=== PATIENT | female | born 1985 | race Caucasian/White ===

== ENCOUNTER 2018-10-28 14:52 | Inpatient (IN) | payer BC ==
--- NOTE | 2018-10-28 15:09 | RAD ---
Exam: Right ankle 3 views: HISTORY: Right ankle pain following injury FINDINGS: Displaced fracture of the base of the medial malleolus. Comminuted essentially nondisplaced fracture of the distal fibular diaphysis. IMPRESSION: Comminuted distal fibular diaphyseal fracture with displaced fracture of the medial malleolus with ov erlying soft tissue swelling.
[2018-10-28 16:38] LABS: #Basophils 0.1 thou/uL (0.0-0.2); #Eosinphils 0.1 thou/uL (0.0-0.7); #Lymphocytes 1.9 thou/uL (1.20-3.40); #Monocytes 0.5 thou/uL (0.11-0.59); #Neutrophils 8.4 thou/uL (1.40-6.50); %Basophils 0.8 % (0.0-1.0); %Eosinophils 1.3 % (0.0-10.0); %Monocytes 4.9 % (0.0-10.0); %Neutrophils 76.1 % (42.0-75.0); Hemoglobin 14.3 g/dL (12.0-16.0); Mean Corpuscular HGB CONC 35.3 g/dL (32.0-36.0); Mean Corpuscular Hemoglobin 32.5 pg (27.0-31.0); Mean Platelet Volume 8.4 fL (7.4-10.4); Platelet Count 310 thou/uL (130-400); RBC Distribution Width 11.1 % (11.5-14.5)
--- NOTE | 2018-10-28 16:46 | RAD ---
PORTABLE CHEST ONE VIEW: Date: 10-28-18 Time: 4:16 p.m. History: Chest pain. FINDINGS: The heart size is normal. The lungs are expanded without focal areas of consolidation, pneumothoraces or pleural effusions. IMPRESSION: No radiographic evidence of acute cardiopulmonary process. POS: [facility]
[2018-10-28 17:02] LABS: ALT (SGPT) 11 U/L (8-55); AST (SGOT) 14 U/L (5-34); Albumin 4.4 g/dL (3.5-5.0); Alkaline Phosphatase 62 U/L (40-150); Anion Gap 13 mmol/L (10-20); BUN (Urea Nitrogen) 10 mg/dL (7.0-18.7); Bilirubin, Total 0.3 mg/dL (0.2-1.2); Calc. Creatinine Clearance 0 mL/min (70-130); Calcium 9.5 mg/dL (7.8-10.44); Carbon Dioxide 23 mmol/L (22-29); Chloride 107 mmol/L (98-107); Estimated GFR-MDRD 72; Globulin 3.2 g/dL (2.4-3.5); Glucose 115 mg/dL (70-105); Potassium 3.6 mmol/L (3.5-5.1); Protein, Total 7.6 g/dL (6.0-8.3); Sodium 139 mmol/L (136-145)
[2018-10-28] MEDS ORDERED: Morphine 4 MG/ML VIAL ONE (17:18)
[2018-10-28] MEDS ORDERED: Ondansetron PF 4 MG/2 ML Vial ONE (17:18)
[2018-10-28] MEDS ORDERED: hydrALAZINE 20 MG/ML VIAL SLOW IVP PRN (17:38)
[2018-10-28] MEDS ORDERED: Ondansetron ODT 4 MG TAB PO PRN (17:38)
[2018-10-28] MEDS ORDERED: Morphine 2 MG/ML SYRINGE SLOW IVP PRN (17:38)
[2018-10-28] MEDS ORDERED: Ondansetron PF 4 MG/2 ML Vial IVP PRN (17:38)
[2018-10-28] MEDS ORDERED: Dextrose 50% Abboject 50 ML SYRINGE SLOW IVP PRN (17:38)
[2018-10-28] MEDS ORDERED: Dextrose 5% in Water 1,000 ML IV PRN (17:38)
[2018-10-28] MEDS ORDERED: traMADol HCl 50 MG TAB PO PRN ×2 (17:47→19:40)
[2018-10-28 18:18] LABS: Magnesium 1.9 mg/dL (1.6-2.6)
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
[2018-10-28] MEDS ORDERED: Sodium Chloride 0.9% 1,000 ML IV SCH (19:00)
[2018-10-28] MEDS: Sodium Chloride 0.9% 1,000 ML IV SCH (21:30)
[2018-10-28] MEDS: Ibuprofen 600 MG TAB PO SCH (21:30)
[2018-10-28] MEDS: Senokot S 8.6-50 MG TAB PO SCH (21:31)
[2018-10-28] MEDS: Famotidine 20 MG TAB PO SCH (21:31)
[2018-10-28] MEDS: Acetaminophen 500 MG TAB PO SCH (21:31)
[2018-10-29] MEDS ORDERED: Potassium Phosphate 30 MMOL in Sodium Chloride 0.9% 500 ML IVPB SCH (00:15)
[2018-10-29] MEDS: Acetaminophen 500 MG TAB PO SCH ×3 (00:59→13:43)
[2018-10-29] MEDS: Sodium Chloride 0.9% 1,000 ML IV SCH ×2 (04:00→08:05)
[2018-10-29 05:03] VITALS: BMI 33.6
[2018-10-29 05:26] LABS: #Basophils 0.1 thou/uL (0.0-0.2); #Eosinphils 0.3 thou/uL (0.0-0.7); #Lymphocytes 2.9 thou/uL (1.20-3.40); #Monocytes 0.7 thou/uL (0.11-0.59); #Neutrophils 3.7 thou/uL (1.40-6.50); %Basophils 1.2 % (0.0-1.0); %Eosinophils 3.4 % (0.0-10.0); %Monocytes 9.6 % (0.0-10.0); %Neutrophils 47.9 % (42.0-75.0); Hemoglobin 11.6 g/dL (12.0-16.0); Mean Corpuscular HGB CONC 34.6 g/dL (32.0-36.0); Mean Corpuscular Hemoglobin 32.6 pg (27.0-31.0); Mean Corpuscular Volume 94.4 fL (78.0-98.0); Mean Platelet Volume 8.4 fL (7.4-10.4); Platelet Count 255 thou/uL (130-400); RBC Distribution Width 11.3 % (11.5-14.5); Red Blood Cell (RBC) Count 3.55 mill/uL (4.20-5.40); White Blood Cell (WBC) Count 7.7 thou/uL (4.8-10.8)
[2018-10-29] MEDS: Ibuprofen 600 MG TAB PO SCH ×2 (05:30→13:48)
[2018-10-29 05:48] LABS: Prothrombin Time 13.4 SEC (12.0-14.7)
[2018-10-29 05:56] LABS: Anion Gap 10 mmol/L (10-20); BUN (Urea Nitrogen) 13 mg/dL (7.0-18.7); Calc. Creatinine Clearance 139 mL/min (70-130); Calcium 8.6 mg/dL (7.8-10.44); Carbon Dioxide 22 mmol/L (22-29); Chloride 111 mmol/L (98-107); Estimated GFR-MDRD 82; Glucose 87 mg/dL (70-105); Magnesium 1.9 mg/dL (1.6-2.6); Phosphorus 5.8 mg/dL (2.3-4.7); Potassium 3.9 mmol/L (3.5-5.1); Sodium 139 mmol/L (136-145)
[2018-10-29] MEDS ORDERED: Neomycin-Polymyxin 1 ML AMP ONE (07:29)
[2018-10-29] MEDS ORDERED: Dexamethasone 20 MG/5 ML VIAL ONE (07:33)
[2018-10-29] MEDS ORDERED: Ondansetron PF 4 MG/2 ML Vial ONE (07:33)
[2018-10-29] MEDS ORDERED: PROPOFOL 200 MG/20 ML VIAL ONE (07:33)
[2018-10-29] MEDS ORDERED: Lidocaine 1% PF 5 ML VIAL ONE (07:33)
[2018-10-29] MEDS ORDERED: ePHEDrine 50 MG/ML VIAL ONE (07:33)
[2018-10-29] MEDS ORDERED: Ketorolac Tromethamine 30 MG/ML VIAL ONE (07:33)
[2018-10-29] MEDS ORDERED: Bupivacaine PF 0.5% 30 ML VIAL ONE (07:35)
[2018-10-29] MEDS ORDERED: Bupivacaine/Epinephrine 0.25% 30 ML VIAL ONE (07:35)
[2018-10-29] MEDS ORDERED: Lidocaine 2% Jelly 5 ML TUBE ONE (07:44)
[2018-10-29] MEDS ORDERED: Fentanyl 100 MCG/2 ML VIAL ONE ×3 (07:44→10:07)
[2018-10-29] MEDS: Famotidine 20 MG TAB PO SCH (08:05)
[2018-10-29] MEDS: Senokot S 8.6-50 MG TAB PO SCH (08:05)
[2018-10-29] MEDS ORDERED: Polyethylene Glycol 3350 17 GM Packet PO SCH (09:00)
[2018-10-29] MEDS ORDERED: Bupivacaine HCl 0.5%/Epinephrine 1:200,000/PF 30 ml Vial ONE (09:16)
[2018-10-29] MEDS ORDERED: Promethazine HCl 25 MG/ML VIAL SLOW IVP PRN (09:48)
[2018-10-29] MEDS ORDERED: Promethazine HCl 25 MG/ML VIAL IM PRN (09:48)
[2018-10-29] MEDS ORDERED: Meperidine HCl/PF 25 MG/ML VIAL SLOW IVP PRN (09:48)
[2018-10-29] MEDS ORDERED: Ondansetron HCl/PF 4 MG/2 ML Vial IVP PRN (09:48)
[2018-10-29] MEDS ORDERED: Meperidine HCl/PF 25 MG/ML VIAL ONE (09:49)
[2018-10-29] MEDS ORDERED: Promethazine HCl 25 MG/ML VIAL ONE (09:56)
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
--- NOTE | 2018-10-29 10:45 | OP ---
DATE OF PROCEDURE: 10/29/2018 PREOPERATIVE DIAGNOSIS: Bimalleolar fracture of the right ankle. POSTOPERATIVE DIAGNOSIS: Bimalleolar fracture of the right ankle. PROCEDURE PERFORMED: Open reduction and internal fixation of the bimalleolar fracture of the right ankle. ANESTHESIA: General. DESCRIPTION OF PROCEDURE: The patient was given preoperative IV antibiotics, taken to the operating room, placed in supine position. Satisfactory general anesthesia was performed. The right lower extremity was sterilely prepped and draped in usual fashion. After exsanguination of tourniquet, the right thigh was raised to 250 mmHg. A longitudinal incision was made in the lateral aspect of the right leg. Blunt dissection was made. The superficial branch of peroneal nerve was identified and carefully retracted out of the way. The lateral cortex of the distal fibular shaft was periosteally elevated and the fracture was manipulated, reduced, held reduced with a bone clamp and then internally fixed with a [employer] third tubular locking plate. A 3.5 cortical screw was placed proximal and distal to the fractures and the remaining 6 holes had 3.5 locking screws. This was performed under fluoroscopic visualization, which showed good alignment of the fibular shaft and proper placement of the plate and screws. Additional incision was made medially over the medial malleolus, and under fluoroscopic visualization, two guide pins were placed up the medial malleolus and then was internally fixed with two 4.0 cannulated screws. This provided good reduction and good stability of the fractures. The ankle was stressed out laterally and there was no opening in the interosseous region, and therefore, an interosseous screw was not needed. Both wounds were then copiously irrigated with antibiotic solution. They were closed using 0 Vicryl for the fat and subcutaneous tissues and skin was closed with 3-0 Rapide. The wounds were then infiltrated with total of 30 mL of 0.5% Marcaine with epinephrine. Sterile dressing was applied. Tourniquet was released. The patient was placed in a boot. She was awakened, extubated, and transferred to recovery room in stable condition. ESTIMATED BLOOD LOSS: 100 mL. COMPLICATIONS: None. TOURNIQUET TIME: 61 minutes. DISCHARGE MEDICATIONS: Tramadol 50 mg one to two every 6 hours as needed for pain #50 with one refill. The patient was instructed multiple times she needs to be nonweightbearing until the fractures have healed, which will take at least 6, possibly 8 weeks. Job ID: [id number]
[2018-10-29 11:24] VITALS: BP 116/78; TEMP 97.4
--- NOTE | 2018-10-29 13:34 | RAD ---
Exam: Right ankle 3 views: HISTORY: Metal plate and screws stabilizing the distal fibular diaphyseal fracture and 2 internal fixation scr ews stabilizing the medial malleolar fracture with considerable improvement in position and alignment. Impression: Status post ORIF right ankle
[2018-10-29] MEDS ORDERED: Ketorolac Tromethamine 30 MG/ML VIAL IVP SCH (15:00)
[2018-10-30] MEDS ORDERED: NORGESTIMATE ETHINYL ESTRADIOL PO SCH (09:00)
== END 2018-10-29 15:50 | disposition home or self-care (01) | DRG 494 ==
LOC: ERS 14:52 → SURG A 17:18
PROVIDERS: ADMIT Specialist; ATTEND Specialist
PROC: 0QSG04Z Reposition Right Tibia with Internal Fixation Device, Open Approach (ICD-10-PCS; principal; 2018-10-29)
PROC: 0QSJ04Z Reposition Right Fibula with Internal Fixation Device, Open Approach (ICD-10-PCS; 2018-10-29)
DX: S82.841A Displaced bimalleolar fracture of right lower leg, initial encounter for closed fracture (principal); W50.0XXA Accidental hit or strike by another person, initial encounter; Y93.51 Activity, roller skating (inline) and skateboarding
CPT/HCPCS: 29515; 36415; 71045; 76000; 80048; 80053; 83735; 84100; 85025; 85610; 93005; 96374; 96375; C1713; C1769; J0670; J0690; J1100; J1885; J2001; J2175; J2270; J2405; J2550; J2704; J3010; J3490; J7050; S0020

== ENCOUNTER 2018-11-08 14:51 | Day surgery (SDC) | payer BC ==
[2018-11-07 11:42] VITALS: BMI 33.5
[2018-11-08] MEDS ORDERED: Fentanyl 100 MCG/2 ML VIAL ONE ×3 (18:43→20:48)
[2018-11-08] MEDS ORDERED: Bupivacaine HCl 0.5%/Epinephrine 1:200,000/PF 30 ml Vial ONE (18:47)
[2018-11-08] MEDS ORDERED: Neomycin-Polymyxin 1 ML AMP ONE (18:47)
[2018-11-08] MEDS ORDERED: HYDROmorphone 2 MG/ML VIAL ONE (19:55)
--- NOTE | 2018-11-08 20:02 | RAD ---
EXAM: INTRAOPERATIVE FLUOROSCOPY. 11/08/18 HISTORY: ORIF right ankle. COMPARISON: 10/29/18. EXPOSURE: 16.4 seconds. 0.27 mGy. FINDINGS: Three intraoperative fluoroscopic views demonstrate two screws at the level of the medial malleolus. There is a side plate and screws traversing the distal fibula. There is a nonspecific metallic densit y projecting along the anterior distal tibia. Correlate clinically. This metallic density is not pres ent on the previous fluoroscopic images. IMPRESSION: Fluoroscopy as above. POS: [facility]
[2018-11-08] MEDS ORDERED: HYDROcodone/Acetaminophen 5/325 mg Tablet ONE (20:40)
--- NOTE | 2018-11-09 01:27 | OP ---
DATE OF PROCEDURE: 11/08/2018 PREOPERATIVE DIAGNOSIS: Displaced medial malleolus fracture of the right ankle. POSTOPERATIVE DIAGNOSIS: Displaced medial malleolus fracture of the right ankle. PROCEDURE PERFORMED: Open reduction and internal fixation, medial malleolus fracture of the right ankle. ANESTHESIA: General. DESCRIPTION OF PROCEDURE: The patient was given preoperative IV antibiotics, taken to operating room, placed in the supine position. Satisfactory general anesthesia was performed. The right foot, ankle, and leg was sterilely prepped and draped in usual fashion. After exsanguination, tourniquet at the right proximal calf was raised to 250 mmHg. Incision was opened on the medial aspect of the ankle over the medial malleolus. It was extended a few millimeters proximally and distally. Blunt dissection was made down to the medial malleolus, which was noted to be completely displaced. The two screws that had been placed previously were removed. There was sufficient bone in the distal aspect of the medial malleolus to be able to reduce it and provide good internal fixation through different areas of the medial malleolus. The medial malleolus was internally fixed with two 4.0 cannulated screws and the two provided excellent fixation for the medial malleolus. The wound was then copiously irrigated with antibiotic solution and then, the wound was closed using 0 Vicryl for the deeper tissue and 3-0 Rapide for the incision. The medial wound was then infiltrated with 20 mL of 0.5% Marcaine with epinephrine and the lateral wound was infiltrated with 10 mL of 0.5% Marcaine with epinephrine. The sterile dressing was then applied. Tourniquet was released. The patient was placed back in a boot. She was awakened, extubated, and transferred to recovery room in stable condition. ESTIMATED BLOOD LOSS: Minimal. COMPLICATIONS: None. TOURNIQUET TIME: 28 minutes. Job ID: [id number]
== END 2018-11-08 20:19 | disposition home or self-care (01) ==
LOC: SDC 14:51
PROVIDERS: ATTEND Orthopaedic Surgery
PROC: 0QSG04Z Reposition Right Tibia with Internal Fixation Device, Open Approach (ICD-10-PCS; principal; 2018-11-08)
DX: S82.51XA Displaced fracture of medial malleolus of right tibia, initial encounter for closed fracture (principal); Z88.8 Allergy status to other drugs, medicaments and biological substances; Z91.018 Allergy to other foods; Y93.51 Activity, roller skating (inline) and skateboarding
CPT/HCPCS: 76000; C1713; C1769; J0670; J0690; J1170; J3010